=== PATIENT | male | born 1985 | race Caucasian/White ===

== ENCOUNTER 2025-03-28 20:55 | Emergency (ER) | payer OTHER ==
[~2025-03-28] VITALS: Ht 188 cm; Wt 102.6 kg
[2025-03-28] MEDS ORDERED: NIRM1TAB PO (23:57)
[2025-03-29 00:30] VITALS: BP 144/85
[2025-03-29 00:40] VITALS: O2SAT 94
[2025-03-29 00:53] VITALS: TEMP 100.8
== END 2025-03-29 00:54 | disposition home or self-care (01) ==
LOC: M ED 20:55
DX: U07.1 COVID-19 (principal); I10 Essential (primary) hypertension; F90.9 Attention-deficit hyperactivity disorder, unspecified type; Z88.5 Allergy status to narcotic agent; Z79.2 Long term (current) use of antibiotics

== ENCOUNTER → 2025-06-11 | Outpatient (CLI) | payer OTHER ==
[~2025-06-11] MED LIST: NIRM1TAB PO
== END ==
LOC: M SLEEP 20:00
PROVIDERS: ATTEND Registered Nurse
DX: R06.83 Snoring (principal)